=== PATIENT | male | born 1945 | race Caucasian/White ===

== ENCOUNTER 2016-07-01 11:35 | Day surgery (SDC) | payer MEDICARE, BC ==
[~2016-07-01] VITALS: Ht 175.3 cm; Wt 80.0 kg
[~2016-07-01 11:35] MED LIST: ATEN100T; FENTANYL PF 100 MCG/2ML ONE; [UNRECOGNIZED DRUG - REMARK]
[2016-07-01] MEDS ORDERED: LACTATED RINGERS 1,000 ML IV SCH (11:54)
[2016-07-01] MEDS ORDERED: APIX5TAB PO (12:28)
[2016-07-01] MEDS ORDERED: ATEN-104 PO (12:28)
[2016-07-01] MEDS ORDERED: ACET-76 PO (12:28)
[2016-07-01] MEDS ORDERED: ATOR10TA PO (12:28)
[2016-07-01] MEDS ORDERED: VALS320T2 PO (12:28)
[2016-07-01] MEDS ORDERED: UBID100C11 PO (12:28)
[2016-07-01] MEDS ORDERED: TEST5GEL6 TP (12:28)
[2016-07-01 12:38] VITALS: BP 146/95
[2016-07-01 12:42] LABS: PATH.CAST-FLAG NOT PRESENT; SPERM-FLAG NOT PRESENT; SRC-FLAG NOT PRESENT; XTAL-FLAG NOT PRESENT; YLC-FLAG NOT PRESENT
[2016-07-01] MEDS ORDERED: PROMETHAZINE 25 MG/ML, 1ML IV PRN (14:00)
[2016-07-01] MEDS ORDERED: ACETAMINOPHEN 325 MG TABLET PO PRN (14:00)
[2016-07-01] MEDS ORDERED: FENTANYL PF 100 MCG/2ML IV PRN (14:00)
[2016-07-01] MEDS ORDERED: METOPROLOL 1 MG/ML, 5ML IV PRN (14:00)
[2016-07-01] MEDS ORDERED: LABETALOL 5MG/ML, 20ML IV PRN (14:00)
[2016-07-01] MEDS ORDERED: hydrALAzine 20 MG/ML, 1ML IV PRN (14:00)
[2016-07-01] MEDS ORDERED: METOCLOPRAMIDE 5 MG/ML, 2ML IV PRN (14:00)
[2016-07-01] MEDS ORDERED: OXYcodone 5 MG/5 ML ORAL.SOL UDC PO PRN (14:00)
[2016-07-01] MEDS ORDERED: HYDROmorphone 1 MG/ML, 1ML IV PRN (14:00)
[2016-07-01] MEDS ORDERED: ONDANSETRON 2MG/ML, 2ML IVPush PRN (14:00)
[2016-07-01] MEDS ORDERED: EPHEDRINE 50 MG/ML, 1ML IVPush PRN (14:00)
[2016-07-01] MEDS ORDERED: CEFAZOLIN 1,000 MG ONE (15:53)
[2016-07-01] MEDS ORDERED: PROPOFOL 10 MG/ML, 20ML ONE (15:53)
[2016-07-01] MEDS ORDERED: ONDANSETRON 2MG/ML, 2ML ONE (15:53)
[2016-07-01] MEDS ORDERED: EPHEDRINE 50 MG/ML, 1ML ONE (15:53)
[2016-07-01] MEDS ORDERED: GLYCOPYRROLATE 0.2MG/1ML ONE (15:53)
[2016-07-01] MEDS ORDERED: DEXAMETHASONE 4 MG/ML, 1ML ONE (15:53)
== END 2016-07-01 16:55 | disposition home or self-care (01) ==
LOC: OUT 11:35
PROVIDERS: ATTEND Urology
DX: N20.2 Calculus of kidney with calculus of ureter (principal); I25.10 Atherosclerotic heart disease of native coronary artery without angina pectoris; I48.91 Unspecified atrial fibrillation; I11.9 Hypertensive heart disease without heart failure; Z87.442 Personal history of urinary calculi; M19.90 Unspecified osteoarthritis, unspecified site; Z90.49 Acquired absence of other specified parts of digestive tract; Z96.652 Presence of left artificial knee joint; Z72.89 Other problems related to lifestyle; Z87.891 Personal history of nicotine dependence; N40.3 Nodular prostate with lower urinary tract symptoms; N13.8 Other obstructive and reflux uropathy; N52.02 Corporo-venous occlusive erectile dysfunction; N43.40 Spermatocele of epididymis, unspecified; Z82.49 Family history of ischemic heart disease and other diseases of the circulatory system; Z80.1 Family history of malignant neoplasm of trachea, bronchus and lung; Z84.1 Family history of disorders of kidney and ureter; Z79.01 Long term (current) use of anticoagulants
CPT/HCPCS: 52353; 74000; 76000; 81001; 88300; 93005; C1758; C1769; J0690; J1100; J2405; J2704; J3010; J7120; 76001; J3490

== ENCOUNTER 2018-05-10 14:14 | Observation (INO) | payer MEDICARE, BC ==
[~2018-05-10] VITALS: Ht 170.2 cm; Wt 79.3 kg
[~2018-05-10 14:14] MED LIST changes: +ACET-76 PO; +APIX5TAB PO; +ATEN-104 PO; +ATOR10TA PO; -FENTANYL PF 100 MCG/2ML ONE; +TEST5GEL29 TP; +UBID100C41 PO; +VALS320T2 PO
[2018-05-10] MEDS ORDERED: POTA15TA9 PO (14:58)
[2018-05-10 15:00] LABS: BASOPHILS # (AUTO) 0.02 x10^3/uL (0-0.1); BASOPHILS % (AUTO) 1 % (0-1); EOSINOPHILS # (AUTO) 0.06 x10^3/uL (0-0.4); EOSINOPHILS % (AUTO) 1 % (1-7); LYMPHOCYTES # (AUTO) 0.96 x10^3/uL (1-3.4); LYMPHOCYTES % (AUTO) 24 % (22-44); MD NO; MEAN CORPUSCULAR HEMOGLOBIN 30.8 pg (27.5-34.5); MEAN CORPUSCULAR HGB CONC 34.5 g/dL (33.2-36.2); MEAN CORPUSCULAR VOLUME 89.2 fL (81-97); MEAN PLATELET VOLUME 10.4 fL (7.4-10.4); MONOCYTES # (AUTO) 0.31 x10^3/uL (0.2-0.8); MONOCYTES % (AUTO) 8 % (2-9); NEUTROPHILS # (AUTO) 2.74 x10^3/uL (1.8-6.8); NEUTROPHILS % (AUTO) 67 % (42-75); PLATELET COUNT 168 x10^3/uL (130-400); RED BLOOD COUNT 4.71 x10^6/uL (4.38-5.82); RED CELL DISTRIBUTION WIDTH 13.2 % (9.4-14.8)
[2018-05-10 15:08] LABS: ALBUMIN 3.5 g/dL (3.4-5.0); ANION GAP 5 mmol/L (5-15); CALCIUM 8.6 mg/dL (8.5-10.1); CHLORIDE 107 mmol/L (98-107); CREATININE 0.96 mg/dL (0.7-1.3)
[2018-05-10 15:12] LABS: TROPONIN I < 0.015 ng/mL (0.000-0.045)
--- NOTE | 2018-05-10 15:30 | NUR ---
PT PASSED SWALLOW EVAL, NO NEW SX'S CONT TO MONITOR
[2018-05-10] MEDS ORDERED: ACETAMINOPHEN 325 MG TABLET PO PRN (17:30)
--- NOTE | 2018-05-10 18:00 | NUR ---
MEAL TRAY GIVEN
--- NOTE | 2018-05-10 19:20 | NUR ---
PT BACK FROM MRI
[2018-05-10 20:20] VITALS: BP 126/87
[2018-05-10] MEDS ORDERED: ATORVASTATIN 20 MG TABLET PO SCH (21:00)
[2018-05-10 21:57] VITALS: BP 126/87
[2018-05-10] MEDS: POTASSIUM CITRATE 15 MEQ PO SCH (21:57)
[2018-05-10] MEDS: APIXABAN 5 MG TABLET PO SCH (21:57)
[2018-05-10] MEDS: ATENOLOL 25 MG TABLET PO SCH (21:58)
[2018-05-11 02:18] VITALS: BP 100/68
[2018-05-11 07:23] VITALS: BP 119/80
[2018-05-11] MEDS: APIXABAN 5 MG TABLET PO SCH (08:26)
[2018-05-11] MEDS: ATENOLOL 25 MG TABLET PO SCH (08:26)
[2018-05-11] MEDS: POTASSIUM CITRATE 15 MEQ PO SCH (09:00)
[2018-05-11] MEDS ORDERED: VALSARTAN 320 MG TABLET PO SCH (09:00)
[2018-05-11] MEDS ORDERED: ATOR20TA37 PO (13:08)
[2018-05-11 15:33] VITALS: BP 116/79
== END 2018-05-11 16:10 | disposition home or self-care (01) ==
LOC: ED 16:37 → EDIP 16:38 → INTOOBSV 16:38 → ED 16:46 → 3NE 20:18 → DCLOUNGE 05-11 15:40
PROVIDERS: ADMIT Internal Medicine; ATTEND Internal Medicine
DX: R27.0 Ataxia, unspecified (principal); R41.0 Disorientation, unspecified; E78.00 Pure hypercholesterolemia, unspecified; E78.5 Hyperlipidemia, unspecified; G45.9 Transient cerebral ischemic attack, unspecified; G46.0 Middle cerebral artery syndrome; I10 Essential (primary) hypertension; I48.0 Paroxysmal atrial fibrillation; J44.9 Chronic obstructive pulmonary disease, unspecified; J98.11 Atelectasis; Z79.01 Long term (current) use of anticoagulants; Z87.442 Personal history of urinary calculi; Z98.41 Cataract extraction status, right eye; Z98.42 Cataract extraction status, left eye
CPT/HCPCS: 36415; 70450; 70551; 71045; 80048; 82040; 83880; 84484; 85025; 93005; 93306; 93880; 99284; G0378

== ENCOUNTER 2018-06-14 10:22 | Outpatient (CLI) | payer MEDICARE, BC ==
[~2018-06-14 10:22] MED LIST changes: +ATOR20TA37 PO; +POTA15TA9 PO
[2018-06-14] MEDS ORDERED: OMNIPAQUE 350 MG/ML, 100ML BOTTLE ONE (13:00)
== END 2018-06-14 23:59 | disposition home or self-care (01) ==
LOC: CFH 10:22
PROVIDERS: ATTEND Nurse Practitioner Family
DX: G45.9 Transient cerebral ischemic attack, unspecified (principal)
CPT/HCPCS: 70496; Q9967

== ENCOUNTER → 2019-11-24 | Outpatient (CLI) | payer MEDICARE, BC | END | disposition home or self-care (01) | LOC: CFH 09:01 | PROVIDERS: ATTEND Internal Medicine | DX: J44.9 Chronic obstructive pulmonary disease, unspecified (principal); I25.10 Atherosclerotic heart disease of native coronary artery without angina pectoris; K44.9 Diaphragmatic hernia without obstruction or gangrene | CPT/HCPCS: 71250 ==

== ENCOUNTER → 2020-02-19 | Outpatient (CLI) | payer MEDICARE, BC ==
[~2020-02-19] MED LIST changes: +REGADENOSON 0.4 MG/5 ML SYRINGE ONE
== END | disposition home or self-care (01) ==
LOC: CFH 07:45
PROVIDERS: ATTEND Internal Medicine Cardiovascular Disease
DX: I25.10 Atherosclerotic heart disease of native coronary artery without angina pectoris (principal)
CPT/HCPCS: 78452; 93017; A9502; J2785